=== PATIENT | female | born 2000 | race Caucasian/White ===

== ENCOUNTER 2025-03-30 07:58 | Inpatient (IN) ==
[2025-03-30] MEDS ORDERED: OXYTOCIN/SODIUM CHLORIDE 500 ML IV PRN (09:42)
[2025-03-30] MEDS ORDERED: OXYTOCIN 10 UNIT/ML VIAL IM PRN (09:42)
[2025-03-30] MEDS ORDERED: SODIUM CHLORIDE FLUSH 0.9% 10 ML SYRINGE IVP PRN (09:42)
[2025-03-30] MEDS ORDERED: hydrALAZINE INJ 20 MG/ML VIAL IVP PRN (09:42)
[2025-03-30] MEDS ORDERED: METHYLERGONOVINE 0.2 MG/ML VIAL IM PRN (09:42)
[2025-03-30] MEDS ORDERED: TERBUTALINE 1 MG/ML VIAL SUBQ PRN (09:42)
[2025-03-30] MEDS ORDERED: CARBOPROST TROMETHAMINE 250 MCG/ML VIAL IM PRN (09:42)
[2025-03-30] MEDS ORDERED: LABETALOL 20 MG/4 ML SYRINGE IVP PRN ×3 (09:42)
--- NOTE | 2025-03-30 09:46 | HISTORY & PHYSICAL EXAMINATION ---
Admit History Smoking Status: Former smoker Meds/Allgy Home Medications Ambulatory Orders Medication Instructions Recorded Confirmed vitamins no.159-iron 1 tab PO 07/24/24 fumarate 28 mg-folic acid 800 mcg tablet ( Vitamin) hydroxyzine HCl PO 02/06/25 03/26/25 aspirin 81 mg chewable tablet 81 mg PO QDAY #90 tabs 0 02/28/25 03/26/25 ondansetron 4 mg disintegrating 4 mg PO Q8H nausea and vomiting 02/28/25 03/26/25 tablet #90 tabs Allergies Allergies Allergy/AdvReac Type Severity Reaction Status Date / Time ciprofloxacin Allergy Severe Anaphylaxis Verified 03/26/25 15:15 Iodinated Contrast Media Allergy Severe Anaphylaxis Verified 03/26/25 15:15 Latex, Natural Rubber Allergy Severe Hives Verified 03/26/25 15:15 metronidazole Allergy Severe Anaphylaxis Verified 03/26/25 15:15 shellfish derived Allergy Severe Anaphylaxis Verified 03/26/25 15:15 bacitracin (From Neosporin Allergy Intermediate Rash Verified 03/26/25 15:15 Plus) lidocaine (From Neosporin Allergy Intermediate Rash Verified 03/26/25 15:15 Plus) neomycin (From Neosporin Allergy Intermediate Rash Verified 03/26/25 15:15 Plus) polymyxin B (From Neosporin Allergy Intermediate Rash Verified 03/26/25 15:15 Plus) pramoxine (From Neosporin Allergy Intermediate Rash Verified 03/26/25 15:15 Plus) PFSH Active Problems All Active Problems (Updated 03/29/25 @ 00:01 by ) Encounter for screening for Streptococcus B (Acute) Cramping affecting , antepartum (Acute) Abdominal cramping affecting (Acute) Hematochezia (Acute) Supervision of high risk in third trimester (Acute) POTS (postural orthostatic tachycardia syndrome) (Acute) Tachycardia (Acute) Uterine size date discrepancy (Acute) Anxiety associated with depression (Acute) Elevated blood pressure affecting in second trimester, antepartum (Acute) Abnormal glucose tolerance in mother complicating (Acute) Mesenteric lymphadenopathy (Acute) Fatty liver disease, nonalcoholic (Acute) Normal in second trimester (Acute) Normal in multigravida in second trimester (Acute) Normal in first trimester (Acute) Hyperemesis affecting , antepartum (Acute) Lightheaded (Acute) Vomiting (Acute) (Acute) Positive test (Acute) Suprapubic abdominal pain (Acute) Encounter for immunization (Acute) Disorder of right rotator cuff (Acute) PCOS (polycystic ovarian syndrome) (Acute) Borderline personality disorder (Acute) LATONIA (generalized anxiety disorder) (Acute) Medical History Medical History (Updated 03/29/25 @ 00:01 by ) Vaginal discharge History of ectopic Surgical History Surgical History History of laparoscopy 01/2024 ectopic Family History Family History Father Alcohol abuse Drug abuse Mother Drug abuse Fibromyalgia Maternal grandfather Cancer Social History Social History (Updated 03/26/25 @ 23:50 by Carmel Vazquez, RENU, EDUCATION COORDINATOR) Smoking Status: Never smoker If you are a former smoker, when did you quit? (Date/Year): 2023 Number of Years Smoked: 2 How many cigarettes a day do you smoke? (20 cigarettes=1 Pk): 4 Second hand tobacco smoke exposure: No Do you dip or chew tobacco?: No Do you vape?: No Living arrangement: At home Marital Status: Living Condition: With spouse/s.o. 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 Upon arrival SVE was deferred per patient request. She is not ezra. She denies vaginal bleeding or leakage of fluid and reports +FM. FHR baseline 150s, moderate variability, + accels, no decels. No contractions appreciated via tocometry. She has been a patient of [facility] for the duration of her which has been complicated by symptomatic POTS. She had a physician consultation and a cardiology consultation was initiated at that time. She is noted to have had an elevated 1 hour glucose tolerance test however her 3 hour glucose test was within normal limits. During her first trimester she was diagnosis with hyperemesis and received IV fluids for management intermittently. She will be admitted to [facility] for active management. She is supported by her Tadeo today. LMP: 06/20/2024 YOU by LMP: 03/27/2025 U/S: 08/24/2024; YOU by US 03/27/2025 Final YOU: 03/27/2025 CONSULTATION: Symptomatic POTS consultation scheduled with Dr. Peraza following patient's ER visit 01/30/2025. Cardiology referral placed by Dr. Peraza. : 02/2021 - EAB G2: 01/2024 - right ectopic G3: Current Prior history of a blood transfusion? No. Will accept blood transfusion in medical emergency. tube winder History: Term NSVB x 0. Ectopic x 1. Last pap 11/2023 WNL, no hx abnormal. Denies history of gonorrhea, chlamydia, genital herpes, oral herpes or any other STI. Sexual partner does NOT have HSV (oral or genital). Medical Hx: Right ectopic ; anxiety; PTSD Surgical Hx: 01/2024 laparoscopy for ectopic , fallopian tube unaffected Social Hx: Monogamous with male partner Tadeo who is active duty [place]. 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 Stopped drinking alcohol due to . Denies current use of tobacco, marijuana or other recreational drugs. Former smoker. Reports that she is safe in current relationship. Family Hx: Denies family history of congenital anomalies, Cystic Fibrosis or chromosomal abnormalities. Alcohol abuse - father; Drug abuse - father, mother; Cancer - MGF Allergies: Cipro, Latex, metronidizole, shellfish, bacitracin,lidocaine, neomycin, polymyxin, prmoxine RX: PNV, hydroxyzine, zofran, asprin Pre- weight: 252 BMI: 34.9 Blood type: O+ Antibody screen: negative CBC: PLT HCT HGB 336; 13.4/39.5 Rubella: immune VZV: immune HBsAg: yo HepC: RPR/AB-EIA: NR HIV: NR Flu: COVID: 2020 x 2, booster 2021 x 1 PAP: 11/2023 WNL, no hx abnormal GC/CT: neg HSV: denies in self and partner Genetic Testing: [id number] neg, sex-male; AFP declined FAS: WNL however incomplete visualization of face, nose, lips and heart. Placenta: posterior, no previa Cord: 3VC JOSIE: 17cm EFW: 61%tile Completion U/S WNL 12/28/2024)- Normal appearance of face, nose, lips and heart including right and left ventricular outflow tracts. Growth & JOSIE 02/21/2025 @ 33.6wks WNL. (JOSIE 21.5cm, 86%tile) 50gm GCT: 188 3hr glucose: F-86 1hr-166; 2hr-126; 3hr-86 TDAP: 01/22/2025 Breast Pump: 01/22/2025 3rd trimester 33.8/ 11.2/ 278 3rd trimester RPR NR GBS: Negative Physical Exam: Normocephalic, atraumatic Heart RRR w/o M/G/R Lungs CTAB Abdomen gravid, soft, nontender EFW 3600g FHR baseline 150s, moderate variability, + accels, no decels No contractions appreciated via tocometry SVE deferred Vertex presentation verified by limited bedside transabdominal ultrasound upon arrival. Bilateral LE's trace edema Mood is anxious. Assessment: 24yo @ 39.2wks gestation by LMP c/w 8wk U/S POTS complicating Obesity GBS negative FHR Category I Plan: Admit to [facility] for induction of labor with pre-induction cervical ripening. 50mcg BC misoprostol q 4hrs. Reevaluate in 24 hours and consider cervical ripening balloon at that time or sooner PRN. Continuous monitoring. Nitrous oxide PRN. Jacuzzi PRN. Epidural per maternal request however patient intends unmedicated delivery. Promote physiologic process and maintain patient autonomy throughout labor process. Patient controlled second stage to minimize valsalva secondary to POTS. Ensure low lighting and low volume in the room per patient request. Anticipate . Conclusion/Plan Lab Results 03/30/25 09:20
[2025-03-30] MEDS ORDERED: SODIUM CHLORIDE FLUSH 0.9% 10 ML SYRINGE IVP SCH (10:00)
[2025-03-30 10:05] LABS: HCT - HEMATOCRIT 35.1 % (37.0-47.0); HGB - HEMOGLOBIN 11.9 g/dL (12.0-16.0); MEAN PLATELET VOLUME 10.4 fL (7.9-10.8); NRBC ABSOLUTE COUNT (AUTO) 0.00 x10^3/uL; NUCLEATED RED BLOOD CELLS AUTO 0.0 /100WBC; PLT - PLATELET COUNT 221 10^3/uL (130-450); RED CELL DISTRIBUTION WIDTH 13.3 % (12.0-15.0)
[2025-03-30] MEDS: LACTATED RINGERS 1,000 ML IV PRN (12:35)
--- NOTE | 2025-03-30 20:16 | PROVIDER PROGRESS NOTE ---
Subjective Subjective Subjective: Wanda is a 24 yo now at 39.2wks gestation by LMP c/w 8wk U/S who presents to [facility] for induction of labor and term gestation earlier this morning. Upon arrival SVE was deferred per patient request. FHR baseline 150s, moderate variability, + accels, no decels. S/P 50mcg BC misoprostol x2 doses and the most recent dose of misoprostol changed to 25mcg. Fabiana q2-5 minutes. Feeling some contractions but none distinctly painful. Doing well with supportive at bedside. On ball. Will plan to continue to the total of 6 doses of misoprostol then discuss further management at that time. Reviewed plan. Current Medications Current Medications Current Medications: Current Medications Generic Name Dose Route Start Last Admin Trade Name Freq PRN Reason Stop Dose Admin Carboprost Tromethamine 250 mcg 03/30/25 09:42 Carboprost Tromethamine 250 Mcg/Ml Vial IM .ONCE PRN Hemorrhage Fentanyl 50 mcg 03/30/25 09:42 Fentanyl 100 Mcg/2 Ml Vial IVP Q1H PRN Severe Pain (score 7-10) Hydralazine HCl 5 - 10 mg 03/30/25 09:42 Hydralazine Inj 20 Mg/Ml Vial IVP Q20M PRN SBP> or= 160 OR DBP> or= 110 Protocol Lactated Ringer's 500 mls @ 999 mls/hr 03/30/25 09:42 03/30/25 12:35 Lr IV 999 mls/hr PRN PRN Administration PER PHYSICIAN ORDER Oxytocin/Sodium Chloride 500 mls @ 999 mls/hr 03/30/25 09:42 Pitocin/Sodium Chloride IV PRN PRN POST- HEMORR PREVENTION Protocol 999 MILLIUNIT/MIN Tranexamic Acid 1,000 mg in 100 mls @ 600 mls/hr 03/30/25 09:42 Tranexamic 1,000 Mg/100ml-Nacl IV Q30M PRN EBL >1200mL and within 3hr Labetalol HCl 20 - 80 mg 03/30/25 09:42 Labetalol 20 Mg/4 Ml Syringe IVP Q10M PRN SBP> or= 160 OR DBP> or= 110 Protocol Labetalol HCl 20 mg 03/30/25 09:42 Labetalol 20 Mg/4 Ml Syringe IVP .ONCE PRN SBP> or= 160 OR DBP> or= 110 Protocol Labetalol HCl 20 - 40 mg 03/30/25 09:42 Labetalol 20 Mg/4 Ml Syringe IVP Q10M PRN SBP> or= 160 OR DBP> or= 110 Protocol Lidocaine HCl 20 ml 03/30/25 09:42 Lidocaine 1% 20 Ml Mdv ID 04/02/25 09:42 .ONCE PRN PERINEAL REPAIR Methylergonovine Maleate 0.2 mg 03/30/25 09:42 Methylergonovine 0.2 Mg/Ml Vial IM .ONCE PRN Hemorrhage Misoprostol 600 mcg 03/30/25 09:42 Misoprostol 200 Mcg Tablet BC .ONCE PRN Hemorrhage Misoprostol 800 mcg 03/30/25 09:42 Misoprostol 200 Mcg Tablet NV .ONCE PRN Hemorrhage Misoprostol 50 mcg 03/30/25 09:50 03/30/25 19:55 Misoprostol 100 Mcg Tablet BC 25 mcg Q4H ADRIAN Administration Nifedipine 10 - 20 mg 03/30/25 09:42 Nifedipine 10 Mg Capsule PO Q20M PRN SBP> or= 160 OR DBP> or= 110 Protocol Oxytocin 10 unit 03/30/25 09:42 Oxytocin 10 Unit/Ml Vial IM .ONCE PRN Step One if no IV access. Sodium Chloride 10 ml 03/30/25 09:42 Sodium Chloride Flush 0.9% 10 Ml Syringe IVP PRN PRN NEEDED PER PROVIDER ORDERS Sodium Chloride 10 ml 03/30/25 10:00 Sodium Chloride Flush 0.9% 10 Ml Syringe IVP Q8H ADRIAN Terbutaline Sulfate 0.25 mg 03/30/25 09:42 Terbutaline 1 Mg/Ml Vial SUBQ .ONCE PRN Tachystole Objective Lab Results 03/30/25 09:20 Other Labs: Lab Results x24hrs 03/30/25 Range/Units 09:20 WBC 9.3 (4.8-10.8) x10^3/uL RBC 3.88 L (4.20-5.40) 10^6/uL Hgb 11.9 L (12.0-16.0) g/dL Hct 35.1 L (37.0-47.0) % MCV 90.5 (81.0-99.0) fL MCH 30.7 (27.0-31.0) pg MCHC 33.9 (32.0-36.0) g/dL RDW 13.3 (12.0-15.0) % Plt Count 221 (130-450) 10^3/uL MPV 10.4 (7.9-10.8) fL Neut # (Auto) 5.7 (1.5-6.6) 10^3/uL Lymph # (Auto) 2.7 (1.5-3.5) 10^3/uL [place] # (Auto) 0.7 (0.0-1.0) 10^3/uL Eos # (Auto) 0.1 (0.0-0.7) 10^3/uL Baso # (Auto) 0.0 (0.0-0.1) 10^3/uL Absolute Nucleated RBC 0.00 x10^3/uL Nucleated RBC % 0.0 /100WBC Blood Type O POSITIVE Antibody Screen NEGATIVE
--- NOTE | 2025-03-31 10:01 | PROVIDER PROGRESS NOTE ---
Subjective Subjective Subjective: Wanda is a @ 39.3wks gestation by LMP c/w 8wk U/S who presents to [facility] for induction of labor and term gestation yesterday morning. She is s/p 6 doses of misoprostol, ctx q 2-4 minutes, FHR baseline 120, moderate variability, + accelerations, no decelerations. Contractions palpate mildly. Patient ambulating in room. Tearful this morning with nursing team. Did not sleep well or for any long periods of time. Briefly discussed possibility of discharge to home if safe, she declines. Then SVE 260/-2/ anterior/soft/small bulging bags. Does have pitting edema bilateral legs to knees. BP WNL. Does have 2 minute prolonged decelerations post every void with good resolution and return to baseline with good variability. Declines CRB. Would prefer pitocin. Will plan to start 4 hours following last dose of misoprostol so at about noon. Current Medications Current Medications Current Medications: Current Medications Generic Name Dose Route Start Last Admin Trade Name Dallinq PRN Reason Stop Dose Admin Carboprost Tromethamine 250 mcg 03/30/25 09:42 Carboprost Tromethamine 250 Mcg/Ml Vial IM .ONCE PRN Hemorrhage Fentanyl 50 mcg 03/30/25 09:42 Fentanyl 100 Mcg/2 Ml Vial IVP Q1H PRN Severe Pain (score 7-10) Hydralazine HCl 5 - 10 mg 03/30/25 09:42 Hydralazine Inj 20 Mg/Ml Vial IVP Q20M PRN SBP> or= 160 OR DBP> or= 110 Protocol Hydroxyzine Pamoate 25 mg 03/30/25 23:13 03/30/25 23:44 Hydroxyzine Pamoate 25 Mg Capsule PO 25 mg QPM PRN Administration Insomnia Lactated Ringer's 500 mls @ 999 mls/hr 03/30/25 09:42 03/30/25 12:35 Lr IV 999 mls/hr PRN PRN Administration PER PHYSICIAN ORDER Oxytocin/Sodium Chloride 500 mls @ 999 mls/hr 03/30/25 09:42 Pitocin/Sodium Chloride IV PRN PRN POST- HEMORR PREVENTION Protocol 999 MILLIUNIT/MIN Tranexamic Acid 1,000 mg in 100 mls @ 600 mls/hr 03/30/25 09:42 Tranexamic 1,000 Mg/100ml-Nacl IV Q30M PRN EBL >1200mL and within 3hr Oxytocin/Sodium Chloride 500 mls @ 2 mls/hr 03/31/25 10:00 Pitocin/Sodium Chloride IV TITR [facility] Protocol 2 MILLIUNIT/MIN Lactated Ringer's 1,000 mls @ 125 mls/hr 03/31/25 10:00 Lr IV .Q8H [facility] Labetalol HCl 20 - 80 mg 03/30/25 09:42 Labetalol 20 Mg/4 Ml Syringe IVP Q10M PRN SBP> or= 160 OR DBP> or= 110 Protocol Labetalol HCl 20 mg 03/30/25 09:42 Labetalol 20 Mg/4 Ml Syringe IVP .ONCE PRN SBP> or= 160 OR DBP> or= 110 Protocol Labetalol HCl 20 - 40 mg 03/30/25 09:42 Labetalol 20 Mg/4 Ml Syringe IVP Q10M PRN SBP> or= 160 OR DBP> or= 110 Protocol Lidocaine HCl 20 ml 03/30/25 09:42 Lidocaine 1% 20 Ml Mdv ID 04/02/25 09:42 .ONCE PRN PERINEAL REPAIR Methylergonovine Maleate 0.2 mg 03/30/25 09:42 Methylergonovine 0.2 Mg/Ml Vial IM .ONCE PRN Hemorrhage Misoprostol 600 mcg 03/30/25 09:42 Misoprostol 200 Mcg Tablet BC .ONCE PRN Hemorrhage Misoprostol 800 mcg 03/30/25 09:42 Misoprostol 200 Mcg Tablet [place] .ONCE PRN Hemorrhage Misoprostol 50 mcg 03/30/25 09:50 03/31/25 07:50 Misoprostol 100 Mcg Tablet BC 50 mcg Q4H [facility] Administration Nifedipine 10 - 20 mg 03/30/25 09:42 Nifedipine 10 Mg Capsule PO Q20M PRN SBP> or= 160 OR DBP> or= 110 Protocol Oxytocin 10 unit 03/30/25 09:42 Oxytocin 10 Unit/Ml Vial IM .ONCE PRN Step One if no IV access. Sodium Chloride 10 ml 03/30/25 09:42 Sodium Chloride Flush 0.9% 10 Ml Syringe IVP PRN PRN NEEDED PER PROVIDER ORDERS Sodium Chloride 10 ml 03/30/25 10:00 Sodium Chloride Flush 0.9% 10 Ml Syringe IVP Q8H [facility] Terbutaline Sulfate 0.25 mg 03/30/25 09:42 Terbutaline 1 Mg/Ml Vial SUBQ .ONCE PRN Tachystole Objective Vital Signs/Intake & Output Intake & Output: Intake & Output 03/28/25 03/29/25 03/30/25 03/31/25 23:59 23:59 23:59 23:59 Intake Total 200 / 200 750 / 750 Balance 200 / 200 750 / 750 Weight (kg) 295 lb 15.988 oz Lab Results 03/30/25 09:20 Other Labs: Lab Results x24hrs 03/30/25 Range/Units 09:20 WBC 9.3 (4.8-10.8) x10^3/uL RBC 3.88 L (4.20-5.40) 10^6/uL Hgb 11.9 L (12.0-16.0) g/dL Hct 35.1 L (37.0-47.0) % MCV 90.5 (81.0-99.0) fL MCH 30.7 (27.0-31.0) pg MCHC 33.9 (32.0-36.0) g/dL RDW 13.3 (12.0-15.0) % Plt Count 221 (130-450) 10^3/uL MPV 10.4 (7.9-10.8) fL Neut # (Auto) 5.7 (1.5-6.6) 10^3/uL Lymph # (Auto) 2.7 (1.5-3.5) 10^3/uL [place] # (Auto) 0.7 (0.0-1.0) 10^3/uL Eos # (Auto) 0.1 (0.0-0.7) 10^3/uL Baso # (Auto) 0.0 (0.0-0.1) 10^3/uL Absolute Nucleated RBC 0.00 x10^3/uL Nucleated RBC % 0.0 /100WBC Blood Type O POSITIVE Antibody Screen NEGATIVE
[2025-03-31] MEDS: OXYTOCIN/SODIUM CHLORIDE 500 ML IV SCH (13:16)
[2025-03-31] MEDS: LACTATED RINGERS 1,000 ML IV SCH (13:18)
[2025-03-31] MEDS: ONDANSETRON 4 MG/2 ML VIAL IVP PRN (13:18)
[2025-03-31 17:57] LABS: RUPTURE OF MEMBRANES PLUS NEGATIVE (NEGATIVE)
--- NOTE | 2025-03-31 19:48 | PROVIDER PROGRESS NOTE ---
Labor Progress Note Labor Progress Note Labor Progress Note/Additional Text: 24yo @ 39+3 weeks gestation s/p 6 doses misoprostol, and pitocin titrated to 18mu/min with contractions q2-4 minutes, palpating moderately, described discomfort as cramping. SVE essentially unchanged 2/60 (not great assessment of effacement)/-2 anterior to midposition. Cervical exam very uncomfortable. Intact membranes. Category I, except for when patient stands up to fast then there is often a 2+ minute deceleration. She has not slept, while she desires to continue with labor progress. Discussed that continuing to titrate pitocin with a cervix unchanged would likely be counterproductive. Does not wish to have CRB placed. N ot at a safe place for AROM. Plan of care to stop pitocin, give sleeping pill, first 50mg of Vistaril. If not sustained sleep, will offer 5mg prn Ambien as well. Discussed uninterrupted period of rest. Stop monitoring as per policy post pitocin and according to Nursing team comfort. Desires to shower and allow for maximum rest. If patient would like to continue with monitoring that is also okay. Discussed that pitocin may be resumed as early as 4am, Patient agreed to not be woke up if sleeping at that time.
[2025-03-31] MEDS ORDERED: ZOLPIDEM 5 MG TABLET PO PRN (19:49)
[2025-04-01] MEDS ORDERED: LIDOCAINE 1% 2 ML VIAL ONE (08:35)
[2025-04-01] MEDS: ACETAMINOPHEN 500 MG TABLET PO PRN (14:07)
--- NOTE | 2025-04-01 14:29 | ANESTHESIA PROCEDURE NOTE ---
Pre-Anesthesia VS, & Labs Diagnosis Surgical Diagnosis:: labor induction Procedure Procedure: labor epidural Vitals Vital Signs: Temp Pulse Resp BP Pulse Ox 36.7 C 101 H 20 132/75 H 99 03/30/25 20:00 03/30/25 20:00 03/30/25 20:00 03/30/25 20:00 03/30/25 20:00 NPO NPO: Other Is Patient ?: Yes Lab Results Current Lab Results: Laboratory Tests 04/01/25 09:00: Blood Type O POSITIVE, Antibody Screen NEGATIVE 03/30/25 09:20: WBC 9.3, RBC 3.88 L, Hgb 11.9 L, Hct 35.1 L, MCV 90.5, MCH 30.7, MCHC 33.9, RDW 13.3, Plt Count 221, MPV 10.4, Neut # (Auto) 5.7, Lymph # (Auto) 2.7, [place] # (Auto) 0.7, Eos # (Auto) 0.1, Baso # (Auto) 0.0, Absolute Nucleated RBC 0.00, Nucleated RBC % 0.0, Blood Type O POSITIVE, Antibody Screen NEGATIVE 03/30/25 09:20 Meds/Allgy Home Medications Ambulatory Orders Medication Instructions Recorded Confirmed vitamins no.159-iron 1 tab PO 07/24/24 fumarate 28 mg-folic acid 800 mcg tablet ( Vitamin) hydroxyzine HCl PO 02/06/25 03/26/25 aspirin 81 mg chewable tablet 81 mg PO QDAY #90 tabs 0 02/28/25 03/26/25 ondansetron 4 mg disintegrating 4 mg PO Q8H nausea and vomiting 02/28/25 03/26/25 tablet #90 tabs Allergies Allergies Allergy/AdvReac Type Severity Reaction Status Date / Time ciprofloxacin Allergy Severe Anaphylaxis Verified 03/26/25 15:15 Iodinated Contrast Media Allergy Severe Anaphylaxis Verified 03/26/25 15:15 Latex, Natural Rubber Allergy Severe Hives Verified 03/26/25 15:15 metronidazole Allergy Severe Anaphylaxis Verified 03/26/25 15:15 shellfish derived Allergy Severe Anaphylaxis Verified 03/26/25 15:15 bacitracin (From Neosporin Allergy Intermediate Rash Verified 03/26/25 15:15 Plus) lidocaine (From Neosporin Allergy Intermediate Rash Verified 03/26/25 15:15 Plus) neomycin (From Neosporin Allergy Intermediate Rash Verified 03/26/25 15:15 Plus) polymyxin B (From Neosporin Allergy Intermediate Rash Verified 03/26/25 15:15 Plus) pramoxine (From Neosporin Allergy Intermediate Rash Verified 03/26/25 15:15 Plus) PFSH Active Problems All Active Problems (Updated 03/29/25 @ 00:01 by ) Encounter for screening for Streptococcus B (Acute) Cramping affecting , antepartum (Acute) Abdominal cramping affecting (Acute) Hematochezia (Acute) Supervision of high risk in third trimester (Acute) POTS (postural orthostatic tachycardia syndrome) (Acute) Tachycardia (Acute) Uterine size date discrepancy (Acute) Anxiety associated with depression (Acute) Elevated blood pressure affecting in second trimester, antepartum (Acute) Abnormal glucose tolerance in mother complicating (Acute) Mesenteric lymphadenopathy (Acute) Fatty liver disease, nonalcoholic (Acute) Normal in second trimester (Acute) Normal in multigravida in second trimester (Acute) Normal in first trimester (Acute) Hyperemesis affecting , antepartum (Acute) Lightheaded (Acute) Vomiting (Acute) (Acute) Positive test (Acute) Suprapubic abdominal pain (Acute) Encounter for immunization (Acute) Disorder of right rotator cuff (Acute) PCOS (polycystic ovarian syndrome) (Acute) Borderline personality disorder (Acute) LATONIA (generalized anxiety disorder) (Acute) Medical History Medical History (Updated 03/29/25 @ 00:01 by ) Vaginal discharge History of ectopic Surgical History Surgical History History of laparoscopy 01/2024 ectopic Family History Family History Father Alcohol abuse Drug abuse Mother Drug abuse Fibromyalgia Maternal grandfather Cancer Social History Social History (Updated 03/26/25 @ 23:50 by Carmel Vazquez CNM, ULTRA SOUND TECHNICIAN) Smoking Status: Never smoker If you are a former smoker, when did you quit? (Date/Year): 2023 Number of Years Smoked: 2 How many cigarettes a day do you smoke? (20 cigarettes=1 Pk): 4 Second hand tobacco smoke exposure: No Do you dip or chew tobacco?: No Do you vape?: No Living arrangement: At home Marital Status: Living Condition: With spouse/s.o. 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
[2025-04-01 16:49] LABS: HCT - HEMATOCRIT 37.1 % (37.0-47.0); HGB - HEMOGLOBIN 12.5 g/dL (12.0-16.0); MEAN PLATELET VOLUME 10.2 fL (7.9-10.8); NRBC ABSOLUTE COUNT (AUTO) 0.00 x10^3/uL; NUCLEATED RED BLOOD CELLS AUTO 0.0 /100WBC; PLT - PLATELET COUNT 259 10^3/uL (130-450); RED CELL DISTRIBUTION WIDTH 13.3 % (12.0-15.0)
[2025-04-01 17:07] LABS: ALT ALANINE AMINOTRANSFERASE 6.0 IU/L (10-60); AST ASPARTATE AMINOTRANSFERASE 11.0 IU/L (10-42); BUN - BLOOD UREA NITROGEN 11.0 mg/dL (6-20); CARBON DIOXIDE - CO2 21.0 mmol/L (21-32); CREATININE 0.6 mg/dL (0.6-1.3); GFR - MDRD 125.0 (>89)
--- NOTE | 2025-04-01 18:04 | PROVIDER PROGRESS NOTE ---
Labor Progress Note Labor Progress Note Labor Progress Note/Additional Text: Wanda is a 24-year-old presenting for elective induction of labor, currently on hospital day three. She reports increased discomfort with contractions but states it's "not terrible." She used nitrous oxide for cervical exam and felt better about it. She does not feel the need to increase pain management at this time. Patient reports a persistent headache for the last four hours, not resolved with Tylenol. Vital Signs: Blood pressure trending upwards, 120s-130s/80s. Heart Rate: Baseline 145-150 bpm, moderate variability, positive accelerations. Physical Exam: - Cervix: 4 cm dilated, 70% effaced, -2 station - Contractions: Every 2-3 minutes, moderately palpable - Lower extremities: 2-3+ swelling - Occasional prolonged heart rate decelerations following quick positional changes and lasting a couple minutes, resolving to baseline Lab Results: - Serum creatinine: 0.6 - AST: 11 - ALT: 6 - Platelets: 259 - Hemoglobin: 12.5 - Hematocrit: 37 1. Labor Induction: Patient is in active labor following induction with misoprostol and oxytocin. Cervical dilation has progresse to 4 cm following agressive membrane sweep. 2. Rising blood pressure, swelling and persistent headache warrant close monitoring for preeclampsia. Labs normal. Urine PCR not yet resulted. 3. POTS (Postural Orthostatic Tachycardia Syndrome): Patient has a history of POTS, causing occasional prolonged heart rate decelerations when she changes position too quickly. Labor Management: - Plan to release bag of water in approximately one hour - Continue oxytocin infusion, currently at 18 milliunits/minute. Titrate up t o 20, may consider titrating to 30 once ruptured if no further progression and IUPC placed Monitoring: - Continuous heart rate monitoring Monitoring: - Close monitoring of blood pressure - Reassess headache and swelling - Await results of urine MTP test - Consider preeclampsia workup if symptoms persist or worsen Pain Management: - Continue to offer pain management options as labor progresses - Nitrous oxide available for use during procedures POTS Management: - Educate patient on slow position changes to minimize orthostatic hypotension and associated heart rate decelerations
[2025-04-01 19:31] LABS: TOTAL PROTEIN,URINE TIMED 66.0 mg/dL
[2025-04-01] MEDS: fentaNYL 100 MCG/2 ML VIAL IVP PRN (20:13)
[2025-04-01] MEDS ORDERED: ePHEDrine 50 MG/ML VIAL IVP ONE (21:32)
[2025-04-01] MEDS ORDERED: ROPIVACAINE 0.2% 200 MG/100 ML BAG EP ONE (21:32)
[2025-04-01] MEDS ORDERED: ONDANSETRON 4 MG/2 ML VIAL IVP PRN (22:28)
[2025-04-01] MEDS ORDERED: METOCLOPRAMIDE 10 MG/2 ML VIAL IVP PRN (22:28)
[2025-04-01] MEDS ORDERED: LACTATED RINGERS 500 ML IV ONE (22:28)
[2025-04-01] MEDS ORDERED: ePHEDrine 50 MG/ML VIAL IVP PRN (22:28)
[2025-04-01] MEDS ORDERED: NALBUPHINE 10 MG/ML AMP IVP PRN (22:28)
--- NOTE | 2025-04-01 22:33 | ANESTHESIA PROCEDURE NOTE ---
Pre-Anesthesia VS, & Labs Diagnosis Surgical Diagnosis:: labor induction Procedure Procedure: labor epidural Vitals Vital Signs: Temp Pulse Resp BP Pulse Ox 36.7 C 101 H 20 132/75 H 99 03/30/25 20:00 03/30/25 20:00 03/30/25 20:00 03/30/25 20:00 03/30/25 20:00 NPO NPO: Other (clears from now until delivery) Is Patient ?: Yes Lab Results Current Lab Results: Laboratory Tests 04/01/25 16:44: WBC 9.6, RBC 4.14 L, Hgb 12.5, Hct 37.1, MCV 89.6, MCH 30.2, MCHC 33.7, RDW 13.3, Plt Count 259, MPV 10.2, Neut # (Auto) 6.3, Lymph # (Auto) 2.5, [place] # (Auto) 0.8, Eos # (Auto) 0.0, Baso # (Auto) 0.0, Absolute Nucleated RBC 0.00, Nucleated RBC % 0.0, Sodium 135, Potassium 4.1, Chloride 107, Carbon Dioxide 21, Anion Gap 7.0, BUN 11, Creatinine 0.6, Estimated GFR (MDRD) 125, Glucose 93, Calcium 9.0, Total Bilirubin 0.4, AST 11, ALT 6 L, Alkaline Phosphatase 187 H, Total Protein 6.0 L, Albumin 3.3, Globulin 2.7, Albumin/Globulin Ratio 1.2 04/01/25 09:00: Blood Type O POSITIVE, Antibody Screen NEGATIVE 03/30/25 09:20: WBC 9.3, RBC 3.88 L, Hgb 11.9 L, Hct 35.1 L, MCV 90.5, MCH 30.7, MCHC 33.9, RDW 13.3, Plt Count 221, MPV 10.4, Neut # (Auto) 5.7, Lymph # (Auto) 2.7, [place] # (Auto) 0.7, Eos # (Auto) 0.1, Baso # (Auto) 0.0, Absolute Nucleated RBC 0.00, Nucleated RBC % 0.0, Blood Type O POSITIVE, Antibody Screen NEGATIVE 04/01/25 16:44 04/01/25 16:44 Meds/Allgy Home Medications Ambulatory Orders Medication Instructions Recorded Confirmed vitamins no.159-iron 1 tab PO DAILY 07/24/24 04/01/25 fumarate 28 mg-folic acid 800 mcg tablet ( Vitamin) aspirin 81 mg chewable tablet 81 mg PO DAILY 04/01/25 04/01/25 hydroxyzine HCl 25 mg tablet 25 mg PO BID PRN anxiety 04/01/25 04/01/25 sertraline 50 mg tablet 50 mg PO DAILY 04/01/2503/09 Allergies Allergies Allergy/AdvReac Type Severity Reaction Status Date / Time ciprofloxacin Allergy Severe Anaphylaxis Verified 03/26/25 15:15 Iodinated Contrast Media Allergy Severe Anaphylaxis Verified 03/26/25 15:15 Latex, Natural Rubber Allergy Severe Hives Verified 03/26/25 15:15 metronidazole Allergy Severe Anaphylaxis Verified 03/26/25 15:15 shellfish derived Allergy Severe Anaphylaxis Verified 03/26/25 15:15 bacitracin (From Neosporin Allergy Intermediate Rash Verified 03/26/25 15:15 Plus) lidocaine (From Neosporin Allergy Intermediate Rash Verified 03/26/25 15:15 Plus) neomycin (From Neosporin Allergy Intermediate Rash Verified 03/26/25 15:15 Plus) polymyxin B (From Neosporin Allergy Intermediate Rash Verified 03/26/25 15:15 Plus) pramoxine (From Neosporin Allergy Intermediate Rash Verified 03/26/25 15:15 Plus) [facility] Active Problems All Active Problems (Updated 03/29/25 @ 00:01 by ) Encounter for screening for Streptococcus B (Acute) Cramping affecting , antepartum (Acute) Abdominal cramping affecting (Acute) Hematochezia (Acute) Supervision of high risk in third trimester (Acute) POTS (postural orthostatic tachycardia syndrome) (Acute) Tachycardia (Acute) Uterine size date discrepancy (Acute) Anxiety associated with depression (Acute) Elevated blood pressure affecting in second trimester, antepartum (Acute) Abnormal glucose tolerance in mother complicating (Acute) Mesenteric lymphadenopathy (Acute) Fatty liver disease, nonalcoholic (Acute) Normal in second trimester (Acute) Normal in multigravida in second trimester (Acute) Normal in first trimester (Acute) Hyperemesis affecting , antepartum (Acute) Lightheaded (Acute) Vomiting (Acute) (Acute) Positive test (Acute) Suprapubic abdominal pain (Acute) Encounter for immunization (Acute) Disorder of right rotator cuff (Acute) PCOS (polycystic ovarian syndrome) (Acute) Borderline personality disorder (Acute) LATONIA (generalized anxiety disorder) (Acute) Medical History Medical History (Updated 03/29/25 @ 00:01 by ) Vaginal discharge History of ectopic Surgical History Surgical History History of laparoscopy 01/2024 ectopic Family History Family History Father Alcohol abuse Drug abuse Mother Drug abuse Fibromyalgia Maternal grandfather Cancer Social History Social History (Updated 03/26/25 @ 23:50 by Carmel Vazquez CNM, [employer]) Smoking Status: Never smoker If you are a former smoker, when did you quit? (Date/Year): 2023 Number of Years Smoked: 2 How many cigarettes a day do you smoke? (20 cigarettes=1 Pk): 4 Second hand tobacco smoke exposure: No Do you dip or chew tobacco?: No Do you vape?: No Living arrangement: At home Marital Status: Living Condition: With spouse/s.o. Support Person: Yes Physical Activity: Swimming How many days per week?: 4 Level: Independent Do you feel safe in your home environment?: Yes History of physical, verbal, emotional, or financial abuse?: No ETOH Use: None Frequency: Occasional Substance Use: denies use Are you sexually active?: Yes Sexual Practice Notes: 21 weeks Occupation - Current: [employer] Patient has POLST: No POLST Questions POLST CPR Status: Attempt Resuscitation (CPR) Anesthesia Exam (Expanded) Exam General: Alert, Oriented x3, Cooperative and Moderate distress Dental: WNL Mouth Opening: Greater than 4 Fingerbreadths Neck Mobility: Normal Mallampati classification: II Thyromental Distance: greater than 6 cm Respiratory: Lungs clear Cardiovascular: Regular rate Plan Plan Anesthesia Type: Epidural Consent for Procedure(s) Verified and Reviewed: Yes Code Status: Attempt Resuscitation ASA Classification ASA classification: 3-Severe systemic disease Is this case an emergency?: No
[2025-04-02] MEDS: ROPIVACAINE 0.2% 200 MG/100 ML BAG EP PRN (02:26)
[2025-04-02] MEDS: TRANEXAMIC ACID IN NACL 1,000 MG/100 ML BAG IV PRN (07:37)
[2025-04-02 07:43] LABS: TOTAL PROTEIN,URINE TIMED 85.0 mg/dL
--- NOTE | 2025-04-02 08:04 | DELIVERY NOTE ---
Delivery Note Delivery Comments (Free Text/Narrative) Delivery Comments (Free Text/Narrative): This 24 -year-old, @39+5 weeks gestation presented for elective induction of labor at 39+2 weeks gestation beginning with preinduction cervical ripening. GBS negative, misoprostol x6 doses followed by oxytocin max infusion of 20mu/min, however titrated, stopped, resumed and titrated multiple times. FHR pattern demonstrated 145 baseline in a category I prior to second stage. Prolonged labor course as she delivered on hospital day day 4. Epidural placed upon maternal request. AROM occurred 04/02/2025 @ 1826. She then progressed to complete/complete @ 0045. Active second stage began at 0520. Significant anxiety complicated the management of Wanda's labor, however she overall did well and communicated openly with provider and nursing team. See nursing documentation related to prolonged second stage prior to active pushing. : Normal spontaneous vaginal delivery of a viable male on 04/02/2025 @ 0736. Nuchal x 1, reduced. The was placed on maternal abdomen, stimulated, dried and placed skin to skin. Apgars 8 & 9 @ 1 & 5 minutes. The umbilical cord was allowed to stop pulsating at which time it was doubly clamped by delivering provider and cut by FOB. 3VC. Cord blood was obtained. Fundal massage and gently cord traction applied for active management of the third stage, placenta delivered spontaneously and intact and appeared normal @ 0742. Given elevated hemorrhage risk, TXA hung prophalactically following delivery of infant. EBL 150cc. Placenta was not sent to pathology. Pitocin administered via IV for hemostasis and allowed to run freely. Uterine massage wa s performed until uterus was deemed firm. weight pending at this time. Inspection of the perineum and vagina noted to be intact. Upon re-inspection the patient was hemostatic. Uterus again massaged and found to be firm. Needle and sponge counts were correct. Uterine fundus firm and there is no excessive bleeding. Tissues well approximated. Skin to skin initiated. Family bonding well. Both mother and baby are in stable condition.
[2025-04-02] MEDS ORDERED: hydrALAZINE INJ 20 MG/ML VIAL IVP PRN ×2 (08:13)
[2025-04-02] MEDS ORDERED: ACETAMINOPHEN 500 MG TABLET PO PRN (08:13)
[2025-04-02] MEDS ORDERED: OXYTOCIN/SODIUM CHLORIDE 500 ML IV PRN (08:13)
[2025-04-02] MEDS ORDERED: SIMETHICONE CHEW 80 MG TABLET PO PRN (08:13)
[2025-04-02] MEDS ORDERED: LABETALOL 20 MG/4 ML SYRINGE IVP PRN ×2 (08:13)
[2025-04-02] MEDS ORDERED: NALOXONE 0.4 MG/ML VIAL IVP PRN (08:13)
[2025-04-02] MEDS ORDERED: LABETALOL 5 MG/1 ML 20 ML MDV IVP PRN (08:13)
[2025-04-02] MEDS: IBUPROFEN 600 MG TABLET PO PRN (09:50)
[2025-04-02] MEDS: DOCUSATE SODIUM 100 MG CAPSULE PO SCH (10:59)
[2025-04-03 04:53] VITALS: O2SAT 98
--- NOTE | 2025-04-03 13:07 | Discharge Summary ---
Discharge Summary Discharge Date: 04/03/25 HOSPITAL COURSE Hospital Course: Date of Admission: 03/30/2025 Date of Discharge: 04/03/2025 Diagnosis on admission: 24yo @ 39.2wks gestation by LMP c/w 8wk U/S POTS complicating Obesity GBS negative FHR Category I Diagnosis on Discharge 24yo s/p on 04/02/2025 Breast and bottle feeding intact perineum Physical exam: Normocephalic, atraumatic Normal uterine involution, FF below umbilicus Scant rubra bleeding Minimal perineal discomfort. Bilateral LE's 1-2+, decreasing Mood significantly improved from labor. Brief History: This 24 -year-old, @39+5 weeks gestation presented for elective induction of labor at 39+2 weeks gestation beginning with preinduction cervical ripening. GBS negative, misoprostol x6 doses followed by oxytocin max infusion of 20mu/min, however titrated, stopped, resumed and titrated multiple times. FHR pattern demonstrated 145 baseline in a category I prior to second stage. Prolonged labor course as she delivered on hospital day day 4. Epidural placed upon maternal request. AROM occurred 04/02/2025 @ 1826. She then progressed to complete/complete @ 0045. Active second stage began at 0520. Significant anxiety complicated the management of Wanda's labor, however she overall did well and communicated openly with provider and nursing team. See nursing documentation related to prolonged second stage prior to active pushing. : Normal spontaneous vaginal delivery of a viable male infant on 04/02/2025 @ 0736. Nuchal x 1, reduced. The was placed on maternal abdomen, stimulated, dried and placed skin to skin. Apgars 8 & 9 @ 1 & 5 minutes. The umbilical cord was allowed to stop pulsating at which time it was doubly clamped by delivering provider and cut by FOB. 3VC. Cord blood was obtained. Fundal massage and gently cord traction applied for active management of the third stage, placenta delivered spontaneously and intact and appeared normal @ 0742. Given elevated hemorrhage risk, TXA hung prophalactically following delivery of infant. EBL 150cc. Placenta was not sent to pathology. Pitocin administered via IV for hemostasis and allowed to run freely. Uterine massage was performed until uterus was deemed firm. weight 3780g. Inspection of the perineum and vagina noted to be intact. Upon re-inspection the patient was hemostatic. Uterus again massaged and found to be firm. Needle and sponge counts were correct. Uterine fundus firm and there is no excessive bleeding. Tissues well approximated. Skin to skin initiated. Family bonding well. Both mother and baby are in stable condition She has been doing well in her course. She is ambulating and tolerating a regular diet. She is urinating without difficulty and her lochia is normal. Her pain is well controlled without narcotic management. She will be discharged to home today on day 1 and encouraged IBU, tylenol and stool softeners PRN. She intends to follow up with [facility] in 1 week for telehealth. She has been given precautions to call if she has any new or worsening sx such as fevers, chills, abdominal pain, increasing bleeding, or foul smelling vaginal lochia. preeclamptic precautions reviewed as well. VZV: immune Rubella: immune ALLERGIES Allergies Allergy/AdvReac Type Severity Reaction Status Date / Time ciprofloxacin Allergy Severe Anaphylaxis Verified 03/26/25 15:15 Iodinated Contrast Media Allergy Severe Anaphylaxis Verified 03/26/25 15:15 Latex, Natural Rubber Allergy Severe Hives Verified 03/26/25 15:15 metronidazole Allergy Severe Anaphylaxis Verified 03/26/25 15:15 shellfish derived Allergy Severe Anaphylaxis Verified 03/26/25 15:15 bacitracin (From Neosporin Allergy Intermediate Rash Verified 03/26/25 15:15 Plus) lidocaine (From Neosporin Allergy Intermediate Rash Verified 03/26/25 15:15 Plus) neomycin (From Neosporin Allergy Intermediate Rash Verified 03/26/25 15:15 Plus) polymyxin B (From Neosporin Allergy Intermediate Rash Verified 03/26/25 15:15 Plus) pramoxine (From Neosporin Allergy Intermediate Rash Verified 03/26/25 15:15 Plus) MEDICATIONS Ambulatory Orders Medication Instructions Recorded Confirmed vitamins no.159-iron 1 tab PO DAILY 07/24/24 04/01/25 fumarate 28 mg-folic acid 800 mcg tablet ( Vitamin) hydroxyzine HCl 25 mg tablet 25 mg PO BID PRN anxiety 04/01/25 04/01/25 sertraline 50 mg tablet 50 mg PO DAILY 04/01/2503/09 PHYSICAL EXAM AT DISCHARGE Vital Signs: Vital Signs x48h Temp Pulse Resp BP 04/03/25 10:00 36.6 C 79 16 119/78 LABS 04/01/25 16:44 04/01/25 16:44 Discharge Plan Discharge Patient Disposition: 01 Home, Self Care Medically Cleared Date:: 04/03/25 Prescriptions: Continued hydroxyzine HCl 25 mg tablet 25 mg PO BID PRN (Reason: anxiety) Patient Comments: TAKE 1 TABLET BY MOUTH TWICE DAILY NEEDED FOR ANXIETY sertraline 50 mg tablet 50 mg PO DAILY Vitamin 28 mg iron- 800 mcg tablet 1 tab PO DAILY Discontinued aspirin 81 mg tablet,chewable 81 mg PO DAILY Activity Restrictions: No Restrictions Diet: Regular Print Language: Micronesian Patient Instructions: After a Vaginal Follow-up Care: Carmel Vazquez CNM, PO[employer]IER [Primary Care Provider, Obstetrics/Gynecology] Vitals documented within 30 minutes of discharge?: Yes (YES)
[2025-04-03 15:07] VITALS: BP 127/83; TEMP 98.1
--- NOTE | 2025-04-03 18:29 | Labor Flowsheet ---
Labor Flowsheet Datetime Report Generated by CPN: 04/03/2025 18:29 Datetime: 04/03/2025 13:11 VITAL SIGNS NBP Sys/Radha/Mean (mmHg): 127 : 83 : 91 Pulse: 90 Datetime: 04/02/2025 10:00 SpO2 (%): 98 Datetime: 04/02/2025 07:53 Membranes Ruptured Date/Time: 04/01/2025 18:26 Datetime: 04/02/2025 07:42 Communication Comments: PLACENTA Datetime: 04/02/2025 07:40 Stage of : Recovery Datetime: 04/02/2025 07:36 UTERINE ACTIVITY Monitor Mode: Internal Quality: Strong Pattern: Normal: <= 5 Contractions in 10 Minutes Resting Tone (Palpate): Relaxed Resting Tone IUP (mmHg): 10 Intensity IUP (mmHg): 60-65 [place] Units (mmHg): 125 Actions for Decelerations: Other Category: Category II Comments: right tilt with pushing Datetime: 04/02/2025 07:35 LaborFlag: Labor Datetime: 04/02/2025 07:33 MEDICATIONS Pitocin (milliunits): Increased to @ 12 Datetime: 04/02/2025 07:15 Contraction Comments: unable to calculate mvu's d/t pushing Datetime: 04/02/2025 07:07 Temperature (C): 37.1 (Annotations: auxillary) Datetime: 04/02/2025 07:00 Frequency (min): 2-5 Duration (sec): 80-100 ASSESSMENT A Monitor Mode: External US FHR Baseline Rate : 120 Variability: Moderate 6-25 bpm Accelerations: 15X15 Decelerations: None Oxygen Method: Room Air Datetime: 04/02/2025 06:58 I/O Interventions: [place] Discontinued Patient Care Comments: 125 ml Datetime: 04/02/2025 06:31 Monitor Interventions for UA: IUPC Inserted Datetime: 04/02/2025 06:15 Pitocin Checklist: At Least 1 Acceleration of 15 bpm x 15 Seconds in 30 Minutes or Adequate Variability; No More than 1 Late Deceleration Occurred in Past 30 Minutes; No More than 2 Variable Decelerations > 60 Seconds in Duration and decreasing >60 bpm in 30 minutes; No More than 5 Uterine Contractions in 10 Minutes for any 20 Minute Interval; Uterus Palpates Soft between Contractions Monitor Interventions for FHR: Ultrasound Adjusted Datetime: 04/02/2025 06:10 COMMUNICATION Communication: Provider at Bedside Datetime: 04/02/2025 05:20 STAGE 2 Pushing: Coached on Pushing; No Urge to Push Pushing Position: Pushing with Contractions Pushing Progress: Descent with Pushing; Caput Noted; Ineffective Pushing Datetime: 04/02/2025 04:38 Patient Position/Activity: High Fowlers Datetime: 04/02/2025 00:45 VAGINAL EXAM Dilatation (cm): 10.0 Effacement (%): 100 Station: 0 Exam by: Zohreh Bernal Vaginal Bleeding: Normal Show Vaginal Exam Comments: pt states she is not ready to push yet, citing anxiety and nervousness surrounding pain with pushing. will give pt a few moments to prepare her mind for pushing. Datetime: 04/01/2025 21:36 ANESTHESIA Anesthesia Comments: sterile prep Datetime: 04/01/2025 20:40 Medication Comments: pt in hysterics. pitocin off at this time. will resume when pt has had a minute to settle. Datetime: 04/01/2025 19:10 Respirations: 18 Temperature Route: Oral Datetime: 04/01/2025 18:26 Membrane Status: Ruptured Membranes Rupture Method: Artificial Amniotic Fluid Color: Clear Amniotic Fluid Amount: Small Amniotic Fluid Odor: Normal Membrane Comments: Provider broke perform AROM Datetime: 04/01/2025 17:41 Cervix, Position: Anterior Datetime: 04/01/2025 17:21 Notification Reason: Lab/Diagnostic Study Datetime: 04/01/2025 16:30 MATERNAL ASSESSMENT Level of Consciousness: Alert Headache: Frontal Nausea/Vomiting: Denies RUQ Epigastric Pain: Denies Datetime: 04/01/2025 09:39 PATIENT CARE IV/Blood Work: IV Started Datetime: 04/01/2025 07:47 DTR's/Clonus: No Clonus Breath Sounds, Left: Clear and Equal Breath Sounds, Right: Clear and Equal Datetime: 04/01/2025 05:46 Pain Coping: Sleeping Datetime: 03/31/2025 23:56 FHR Baseline Changes: No Baseline Change Datetime: 03/31/2025 20:38 Pain Presence: Intermittent Pain Type: Cramping Pain Location: Abdomen Antiemetics/Antacids: Vistaril (mg) @ 50 Datetime: 03/31/2025 19:51 Hygiene: Shower Datetime: 03/31/2025 19:26 Cervix, Consistency: Soft Datetime: 03/31/2025 19:23 Provider Reviewed Strip: Yes Strip Reviewed by: Mknudsen Provider Notified (Name): Kendra B Datetime: 03/31/2025 07:55 Maternal Comments: c/o nausea, denies Zofran at this time Datetime: 03/31/2025 07:50 Cervical Ripening Agents: Cytotec @ Datetime: 03/31/2025 06:30 Pain Assessment Comments: not in pain Datetime: 03/30/2025 23:19 Pain Relief Measures: Comfort Measures Comfort Measures: Breathing/Relaxation; Family Support Datetime: 03/30/2025 20:10 TEACHING Instructional Method: Demo; Verbal; Patient Instructed; Verbalized Understanding Plan of Care: basics reviewed: wide gape, deep latch, tip to nip, feeding cues, freq of feeds, hand expression of colostrum, voids/stools Datetime: 03/30/2025 20:07 PAIN Pain Scale: Pt prefers not to use 1-10 d/t an anxiety trigger. Mild UCs/cramping but not painful Datetime: 03/30/2025 19:30 Unit Routine: Unit Personnel; Monitoring; Safety/Fall Risk Prevention; Medications Labor/Induction: Cervical Ripening; Induction Pain Management: Pain Scale/Goals; Comfort Measures Medications: Cervical Ripening; Pitocin PTL/PROM: Hydration Related: Maternal Physical Changes; Maternal Emotional Changes; Hydration; Activity and Rest
== END 2025-04-03 13:25 | disposition home or self-care (01) | DRG 807 ==
LOC: WFO 07:58 → FBP 07:59
PROVIDERS: ADMIT Nurse Practitioner Obstetrics & Gynecology; ATTEND Nurse Practitioner Obstetrics & Gynecology